=== PATIENT | male | born 1930 | race Caucasian/White ===

== ENCOUNTER 2020-09-02 08:11 | Inpatient (IN) ==
[2020-09-02] MEDS ORDERED: HYDROcodone/ACETAMINOPHEN 1 EACH TABLET PO ONE (08:37)
[2020-09-02] MEDS ORDERED: NORMAL SALINE 1,000 ML IV PRN (09:17)
[2020-09-02] MEDS ORDERED: ADENOSINE 3 MG/ML DISP.SYRIN IV ONE (09:26)
--- NOTE | 2020-09-02 09:26 | ERNOTE ---
Trauma/Assault HPI - Narrative Date of Service: 09/02/20 - General Stated Complaint: Left rib pain Time Seen by Provider: 09/02/20 08:12 Source: patient Exam Limitations: no limitations - Immun/Allergies/Home Medications Immunizations: IMMUNIZATION HX Immunizations Up to Date Yes History of Influenza Vaccine Yes Hx Pneumococcal Vaccination Yes Allergies/Adverse Reactions: Allergies No Known Allergies Allergy (Verified 04/20/20 09:55) Home Medications: HOME MEDICATIONS albuterol sulfate 90 mcg/actuation aerosol inhaler 1 puff IH Q6H 02/18/20 [Last Taken Unknown] amlodipine 10 mg tablet 10 mg PO DAILY tab 02/18/20 [Last Taken Unknown] cholecalciferol (vitamin D3) 10 mcg (400 unit) capsule 10 mcg PO DAILY 02/18/20 [Last Taken Unknown] doxazosin 8 mg tablet 8 mg PO DAILY tab 02/18/20 [Last Taken Unknown] magnesium chloride 64 mg PO DAILY 02/18/20 [Last Taken Unknown] furosemide 20 mg tablet 40 mg PO DAILY tab 04/20/20 [Last Taken Unknown] - History of Present Illness Narrative: This patient is an 89-year-old gentleman who is here with left rib pain. He said that around 8:30 PM you last night, he was trying to get into a car. He said that he lost his balance and went down injuring his left ribs. He did hit the left side of his head. He has no headache. He had no loss of consciousness. He is not interested in a head CT. He has pain when he breathes. He says that he always has a cough and is short of breath. He does not think it is any worse than usual but it hurts more to breathe. He took Tylenol last night. He does not know if he is on a blood thinner. He denies abdominal pain. No nausea or vomiting. He has chronic shoulder pain and does not think it is any worse than usual. He has some abrasions of his left knuckles and left knee. They are not of concern. He does not know when his last tetanus shot was and is interested in another. Review of Systems - Review of Systems All Other Systems: All systems neg except as marked Medical History (Last Reviewed 09/02/20 @ 09:07 by Kiran Mathur MD) Injury of left shoulder (Acute) Status post fall concern for significant rotator cuff impairment Right shoulder pain (Chronic) Fall July 2019 Skin cancer Surgical History: Surgical History (Last Reviewed 09/02/20 @ 09:07 by Kiran Mathur MD) History of prostate surgery Family History: Family History (Last Reviewed 09/02/20 @ 08:18 by Magda Crooks RN) Mother No problems noted. Father Cancer skin Social History: (Last Reviewed 09/02/20 @ 09:07 by Kiran Mathur MD) Social History: Marital status: / household members: none current occupational status: retired current occupation: Retired Highest level of school completed/degree received: 8th grade Service: No Tobacco: Smoking Status: Former smoker Alcohol: alcohol intake: former Substance Use: substance use type: does not use Dietary Habits: caffeine: Yes Type: coffee Physical Exam - Physical Exam General Appearance: Present: wd/wn, alert, no apparent distress Head Exam: Present: no tenderness w palpation, ecchymosis - Left lateral scalp. Absent: lacerations Eye Exam: Normal inspection: bilateral Ears, Nose, Throat: Present: normal ENT inspection, abnormal TM (R) - Cerumen occlusion. Absent: abnormal TM (L) Neck: Present: normal inspection, nontender Respiratory: Present: no respiratory distress, no accessory muscle use, chest tenderness - Left posterior below the scapula. Left lateral lower. Left anterior diffusely., rhonchi Cardiovascular/Chest: Present: regular rate, rhythm, systolic murmur - In the aortic valve area. Gastrointestinal/Abdominal: Present: normal bowel sounds, nontender, nondistended, soft, no organomegaly Back Exam: Present: no vertebral tenderness, other - Tenderness below the left scapula. Extremity Exam: Present: normal range of motion, other - He has some superficial abrasions over some of the knuckles on the back of the left hand. He has a superficial abrasion of the anterior left knee. Neurological Exam: Present: alert, oriented, normal mood/affect, no motor/sensory deficits Skin Exam: Present: normal color, warm/dry - C-Spine cleared by: Neg history & exam Progress - Date and Time Seen: Date and Time: 09/02/20 09:24 The patient has had his x-rays. He went into a tachycardia at about 158. He has no known history of heart disease or arrhythmia. Repeat EKG shows a tachycardia at 155. There is a short SC interval. This might be a sinus tachycardia versus atrial flutter. We will plan to try some adenosine. 09/02/20 09:42 He received the adenosine. He is now in a sinus rhythm at rate 76. Labs are pending. 09/02/20 10:30 He has had no further arrhythmia. The labs have returned and showed anemia and renal failure. He normally is seen in [place]. He has seen a chemistry lecturer at [place]. Dialysis was recommended but he refuses. He is supposed to be seen again in November. - Results and Orders Patient's Lab Results:: I have reviewed the patient's lab results. Results and Orders: Laboratory Tests 09/02/20 09/02/20 09:30 09:30 WBC 6.6 RBC 3.19 L Hgb 9.9 L Hct 30.9 L MCV 96.9 MCH 31.0 MCHC 32.0 RDW 13.7 Plt Count 180 MPV 8.3 Immature Gran % (Auto) 0.80 H Immature Gran # (Auto) 0.05 H Neutrophils % 77.2 H Lymphocytes % 8.9 L Monocytes % 12.2 H Eosinophils % 0.6 Basophils % 0.3 Nucleated RBC % 0.0 Neutrophils # 5.1 Lymphocytes # 0.59 L Monocytes # 0.8 Eosinophils # 0.0 Absolute Basophils 0.0 Sodium 141 Plasma Sodium 141 Potassium 4.7 H Chloride 107 H Carbon Dioxide 22.2 L Anion Gap 16.5 H BUN 53 H Creatinine 4.13 H Est GFR (Non-Af Amer) 15 L BUN/Creatinine Ratio 12.8 Random Glucose 123 H Calcium 8.6 Calcium Adj for Albumin 8.3 L Magnesium 1.8 Total Bilirubin 0.4 AST 19 ALT 15 L Alkaline Phosphatase 75 Troponin I 0.047 B-Natriuretic Peptide 1741 H Total Protein 7.5 Albumin 4.0 TSH 1.255 - Vital Signs Vital Signs: Vital Signs 09/02/20 08:11 09/02/20 08:17 Temperature 36.5 C 36.5 C Pulse Rate 97 97 Respiratory Rate 19 19 Blood Pressure 152/82 H 152/82 H O2 Sat by Pulse Oximetry 95 95 - EKG EKG #1 EKG read: Interp. by me EKG Comments: 08: 17 Sinus rhythm with sinus arrhythmia Rate 97 Right bundle branch block No acute appearing ST or T wave changes. No old EKGs in our system for comparison. EKG #2 EKG read: Interp. by me EKG Comments: Tachycardia short SC interval possible atrial flutter Rate 155 Right bundle branch block No acute appearing ST or T wave changes. Compared to an EKG done earlier today, the rate is faster. EKG #3 EKG read: Interp. by me EKG Comments: Sinus rhythm with sinus arrhythmia Rate 73 Right bundle branch block No acute appearing ST or T wave changes Compared to the prior EKG, the rate has slowed. - X-Ray X-Ray #1 X-Ray: chest Interpretation: Reviewed by me X-ray Comments: Chest PA & Lateral *~ Exam Date: 09/02/2020 08:52 Ordering Physician: Kiran Mathur MD History: Fall last night. Left rib pain. Technique: PA and lateral views of the chest are evaluated without comparison. Findings: Diffuse hyperinflation of the lungs bilaterally with flattening of the hemidiaphragm. Within the right middle lobe is ill-defined probably linear bandlike density. However, underlying nodular density could also be partially obscured from the linear density. There is some pleural scarring and linear parenchymal scarring peripheral to this main opacity. Unclear whether this represents chronic scarring or whether there is an underlying pulmonary nodule. Recommend further evaluation with chest CT given the lack of any prior imaging for comparison. No left-sided consolidation. No pleural effusion or pneumothorax. Silhouette and pulmonary vasculature are normal. There is a minimally displaced fracture the posterior aspect of the left seventh rib is better visualized on the dedicated rib series. The remaining osseous structures demonstrate decreased bony mineralization and degenerative changes of the spine and shoulders. IMPRESSION: 1. MINIMALLY DISPLACED LEFT POSTERIOR SEVENTH RIB FRACTURE. 2. NONSPECIFIC LINEAR BANDLIKE OPACITY AND LINEAR SCARRING IN THE RIGHT LUNG BASE WHICH MAY OR MAY NOT BE OBSCURING A NODULAR OPACITY. RECOMMEND FURTHER EVALUATION WITH CHEST CT WITH CONTRAST GIVEN THE LACK OF ANY PRIOR EXAMS TO DOCUMENT STABILITY. Electronically signed by Amador Elmore D.O.. X-Ray #2 X-Ray: ribs Interpretation: Reviewed by me X-ray Comments: Ribs Unilateral LT *~ Exam Date: 09/02/2020 08:55 Ordering Physician: Kiran Mathur MD Indication: Left lateral rib pain after fall last night. Technique: 4 coned-down views of the left ribs. Comparison: No relevant priors. Findings: There is a minimally displaced fracture the posterior aspect of the left seventh rib. The distal rib is displaced approximately 2 mm superiorly when related to the proximal rib. No other visible displaced rib fractures identified. No pleural effusion, pleural thickening or pneumothorax identified. IMPRESSION: MINIMALLY DISPLACED POSTERIOR SEVENTH RIB FRACTURE ON THE LEFT. NO COMPLICATION. Electronically signed by Amador Elmore D.O.. - Progress/Reassessment Chief Complaint: Fall Plan - Plan Plan: With the arrhythmia and his injury, it seems prudent to observe the patient in the hospital. I spoke with Dr. Zhang. She is okay observing in his lungs he understands there is no cardiology. The patient understands and is okay with this. Departure Clinical Impression: Tachyarrhythmia, Rib fracture, Renal failure, Anemia, Hypertension, Pulmonary scarring - Departure Disposition: Still a patient Condition: Stable Referrals: Noelle Moreno ARNP [Primary Care Provider] - Critical Care Time - Critical Care Critical Time Spent:: No
[2020-09-02 09:37] LABS: Hematocrit 30.9 % (42.0-52.0); Hemoglobin 9.9 gm/dL (13.5-18.0); Mean Cell Volume 96.9 fl (78-100); Mean Platelet Volume 8.3 fl (8-11.3); Neutrophil # 5.1 K/mm3 (1.3-6.0); Neutrophil % 77.2 % (42-75.0); Platelet Count 180 K/mm3 (150-450); Red Blood Count 3.19 M/mm3 (4.7-6.0); Red Cell Distribution Width 13.7 % (11.5-14.0); White Blood Count 6.6 K/mm3 (4.0-10.5)
[2020-09-02 09:54] LABS: Troponin I 0.047 ng/mL (0.00-0.10)
[2020-09-02 09:56] LABS: Anion Gap 16.5 mmol/L (6.8-13.8); BUN/Creatinine Ratio 12.8 (9.0-21.6); Bilirubin, Total 0.4 mg/dL (0.0-1.1); Ca. Corrected For Albumin 8.3 mg/dL (8.4-10.2); Calcium * 8.6 mg/dL (7.9-10.9); Carbon Dioxide 22.2 mmol/L (24-32.6); Magnesium 1.8 mg/dL (1.2-2.8); Potassium 4.7 mmol/L (3.4-4.6); TSH * 1.255 uIU/mL (0.358-3.74); Total Protein 7.5 gm/dL (6.2-8.2)
--- NOTE | 2020-09-02 12:40 | HP ---
Chief Complaint - Chief Complaint Date of Service: 09/02/20 Time of Service: 12:24 Chief Complaint: rib pain History of Present Illness: Patient with PMHx of renal failure, COPD, HTN presented to the ED the morning after falling. He is not exactly sure what happened, but was getting out of his car and fell, hitting his head. He has substantial left side pain. In the ED, workup found a minimally displaced posterior left 7th rib fracture. While in the ED, his HR escalated to the 150's, sinus vs aflutter. He was given a dose of adenosine and rate decreased to the 70's. He is in renal failure, but this is longstanding, and he has declined renal replacement therapy. Baseline creatinine appears to be around 3.8, and was 4.13 today with GFR of 15. COVID negative. He is anemic with Hgb of 9.9, baseline around 10.0. He lives alone. He is admitted to observation for monitoring of his heart rate/rhythm and pain control. History obtained from him with his grand daughter's partner at bedside. Medical History (Last Reviewed 09/02/20 @ 09:07 by Kiran Mathur MD) Injury of left shoulder (Acute) Status post fall concern for significant rotator cuff impairment Right shoulder pain (Chronic) Fall July 2019 Skin cancer Surgical History: Surgical History (Last Reviewed 09/02/20 @ 09:07 by Kiran Mathur MD) History of prostate surgery Family History: Family History (Last Reviewed 09/02/20 @ 08:18 by Magda Crooks RN) Mother No problems noted. Father Cancer skin Social History: (Last Reviewed 09/02/20 @ 09:07 by Kiran Mathur MD) Social History: Marital status: / household members: none current occupational status: retired current occupation: Retired Highest level of school completed/degree received: 8th grade Service: No Tobacco: Smoking Status: Former smoker Alcohol: alcohol intake: former Substance Use: substance use type: does not use Dietary Habits: caffeine: Yes Type: coffee Review Of Systems (GEN) - Review of Systems Generalized/Overall Review: Present: Fatigue - baseline. Absent: Fever Respiratory: Present: Cough, Shortness of Breath - baseline Cardiac: Present: Chest Pain - left lateral. Absent: Edema Abdominal: Present: No Symptoms Reported Genitourinary: Present: No Symptoms Reported Musculoskeletal: Present: Joint Pain - shoulders Skin: Present: No Symptoms Reported Immunizations: IMMUNIZATION HX Immunizations Up to Date Yes History of Influenza Vaccine Yes Hx Pneumococcal Vaccination Yes Allergies/Adverse Reactions: Allergies Allergy/AdvReac Type Severity Reaction Status Date / Time No Known Allergies Allergy Verified 04/20/20 09:55 Home Medications: HOME MEDICATIONS albuterol sulfate 90 mcg/actuation aerosol inhaler 1 puff IH Q6H 02/18/20 [Last Taken Unknown] amlodipine 10 mg tablet 10 mg PO DAILY tab 02/18/20 [Last Taken Unknown] cholecalciferol (vitamin D3) 10 mcg (400 unit) capsule 10 mcg PO DAILY 02/18/20 [Last Taken Unknown] doxazosin 8 mg tablet 8 mg PO DAILY tab 02/18/20 [Last Taken Unknown] magnesium chloride 64 mg PO DAILY 02/18/20 [Last Taken Unknown] furosemide 20 mg tablet 40 mg PO DAILY tab 04/20/20 [Last Taken Unknown] Albuterol Sulfate/Ipratropium [Duoneb 2.5-0.5MG/3ML Soln] 3 ml IH QID 09/02/20 [Last Taken Unknown] Fluticasone Propion/Salmeterol [Advair 250-50 Diskus] 1 puff IH BID 09/02/20 [Last Taken Unknown] Sodium Bicarbonate 650 mg PO TID 09/02/20 [Last Taken Unknown] Symbicort 160-4.5 Mcg Inhaler 2 puff BID 09/02/20 [Last Taken Unknown] Umeclidinium Brm/Vilanterol Tr [Anoro Ellipta 62.5-25 Mcg INH] 1 ea IH DAILY 09/02/20 [Last Taken Unknown] Exam - Exam Vital Signs: Vital Signs - Last Taken Temp 36.5 C 09/02/20 11:57 Pulse 93 09/02/20 11:57 Resp 21 H 09/02/20 11:57 BP 137/66 09/02/20 11:57 Pulse Ox 94 09/02/20 11:57 Constitutional: Present: Alert, Cooperative, Other - pain with coughing, Elderly Respiratory: Present: no respiratory distress, rhonchi - sonorous bilateral lung sounds Cardiovascular/Chest: Present: regular rate, rhythm, systolic murmur Abdomen: Present: Normal bowel sounds, soft, nontender Extremity: Absent: lower extremity edema Eye contact: Present: cooperative, good eye contact Diagnostic Studies: Abnormal Lab Results 09/02/20 09/02/20 Range/Units 09:30 09:30 RBC 3.19 L (4.7-6.0) M/mm3 Hgb 9.9 L (13.5-18.0) gm/dL Hct 30.9 L (42.0-52.0) % Immature Gran % (Auto) 0.80 H (0.001-0.429) % Immature Gran # (Auto) 0.05 H (0.000-0.0310) K/mm3 Neutrophils % 77.2 H (42-75.0) % Lymphocytes % 8.9 L (20-51) % Monocytes % 12.2 H (0.0-9) % Lymphocytes # 0.59 L (1.5-3.5) k/mm3 Potassium 4.7 H (3.4-4.6) mmol/L Chloride 107 H (97-106) mmol/L Carbon Dioxide 22.2 L (24-32.6) mmol/L Anion Gap 16.5 H (6.8-13.8) mmol/L BUN 53 H (6-23) mg/dL Creatinine 4.13 H (0.4-1.4) mg/dL Est GFR (Non-Af Amer) 15 L (60-130) mL/min Random Glucose 123 H (70-110) mg/dL Calcium Adj for Albumin 8.3 L (8.4-10.2) mg/dL ALT 15 L (19-67) U/L B-Natriuretic Peptide 1741 H (5-650) pg/mL Laboratory Results WBC 6.6 K/mm3 (4.0-10.5) 09/02/20 09:30 RBC 3.19 M/mm3 (4.7-6.0) L 09/02/20 09:30 Hgb 9.9 gm/dL (13.5-18.0) L 09/02/20 09:30 Hct 30.9 % (42.0-52.0) L 09/02/20 09:30 MCV 96.9 fl (78-100) 09/02/20 09:30 MCH 31.0 pg (27-31) 09/02/20 09:30 MCHC 32.0 g/dl (32-36) 09/02/20 09:30 RDW 13.7 % (11.5-14.0) 09/02/20 09:30 Plt Count 180 K/mm3 (150-450) 09/02/20 09:30 MPV 8.3 fl (8-11.3) 09/02/20 09:30 Immature Gran % (Auto) 0.80 % (0.001-0.429) H 09/02/20 09:30 Immature Gran # (Auto) 0.05 K/mm3 (0.000-0.0310) H 09/02/20 09:30 Neutrophils % 77.2 % (42-75.0) H 09/02/20 09:30 Lymphocytes % 8.9 % (20-51) L 09/02/20 09:30 Monocytes % 12.2 % (0.0-9) H 09/02/20 09:30 Eosinophils % 0.6 % (0.0-3.0) 09/02/20 09:30 Basophils % 0.3 % (0.0-1.0) 09/02/20 09:30 Nucleated RBC % 0.0 k/mm3 (0-1) 09/02/20 09:30 Neutrophils # 5.1 K/mm3 (1.3-6.0) 09/02/20 09:30 Lymphocytes # 0.59 k/mm3 (1.5-3.5) L 09/02/20 09:30 Monocytes # 0.8 k/mm3 (0.0-1.0) 09/02/20 09:30 Eosinophils # 0.0 k/mm3 (0.0-0.7) 09/02/20 09:30 Absolute Basophils 0.0 k/mm3 (0.0-0.1) 09/02/20 09:30 Sodium 141 mmol/L (132-142) 09/02/20 09:30 Plasma Sodium 141 mmol/L (130-142) 09/02/20 09:30 Potassium 4.7 mmol/L (3.4-4.6) H 09/02/20 09:30 Chloride 107 mmol/L (97-106) H 09/02/20 09:30 Carbon Dioxide 22.2 mmol/L (24-32.6) L 09/02/20 09:30 Anion Gap 16.5 mmol/L (6.8-13.8) H 09/02/20 09:30 BUN 53 mg/dL (6-23) H 09/02/20 09:30 Creatinine 4.13 mg/dL (0.4-1.4) H 09/02/20 09:30 Est GFR (Non-Af Amer) 15 mL/min (60-130) L 09/02/20 09:30 BUN/Creatinine Ratio 12.8 (9.0-21.6) 09/02/20 09:30 Random Glucose 123 mg/dL (70-110) H 09/02/20 09:30 Calcium 8.6 mg/dL (7.9-10.9) 09/02/20 09:30 Calcium Adj for Albumin 8.3 mg/dL (8.4-10.2) L 09/02/20 09:30 Magnesium 1.8 mg/dL (1.2-2.8) 09/02/20 09:30 Total Bilirubin 0.4 mg/dL (0.0-1.1) 09/02/20 09:30 AST 19 U/L (0-48) 09/02/20 09:30 ALT 15 U/L (19-67) L 09/02/20 09:30 Alkaline Phosphatase 75 U/L (50-170) 09/02/20 09:30 Troponin I 0.047 ng/mL (0.00-0.10) 09/02/20 09:30 B-Natriuretic Peptide 1741 pg/mL (5-650) H 09/02/20 09:30 Total Protein 7.5 gm/dL (6.2-8.2) 09/02/20 09:30 Albumin 4.0 gm/dl (3.4-5.0) 09/02/20 09:30 TSH 1.255 uIU/mL (0.358-3.74) 09/02/20 09:30 SARS-CoV-2 (PCR) Not detected (NotDetected) 09/02/20 10:25 Assessment/Plan - Narrative Narrative: Will monitor heart rate on telemetry, and check his response to tramadol. If no recurrence and pain is controlled, could DC home tomorrow. He agrees to home health. Will order PT consult. He has a cane and walker at home. He is homebound due to COPD. The need for custodial is medication management. The need for home health care skilled services is directly related to the time spent [id number] with him. - Assessment/Plan (1) Tachyarrhythmia Assessment: Resolved in the ED. Continue telemetry. If it recurs, could start metoprolol, but I have concerns for further reducing his energy levels and causing more falls. He has had about 3 falls in the last year. With his severely poor renal function and advanced COPD, he likely will continue to fall. Problem: Resolved (2) Rib fracture Assessment: Will start tramadol and monitor for pain control, and make sure he can tolerate this, with his poor renal function. Problem: Acute (3) Abnormal CXR Assessment: CXR read states "NONSPECIFIC LINEAR BANDLIKE OPACITY AND LINEAR SCARRING IN THE RIGHT LUNG BASE WHICH MAY OR MAY NOT BE OBSCURING A NODULAR OPACITY." Will defer this to his PCP. With his serious comorbidities, further workup may not be advantageous for him. Problem: Acute (4) Renal failure Assessment: GFR 15 today, but unable to find previous GFR. Renal replacement therapy has been suggested for him, but he's declined. Problem: Chronic Qualifiers: Chronic kidney disease stage: stage 4 (severe) (5) Anemia Assessment: At baseline. Likely due to renal failure. Problem: Chronic (6) Cardiac murmur Assessment: Patient and his grand daughter's partner are unaware of this being present in the past. If PCP would like, could obtain echo. Problem: Acute (7) Hypertension Problem: Acute (8) Right shoulder pain Problem: Chronic Qualifiers: Chronicity: chronic Qualified Code(s): M25.511 - Pain in right shoulder; G89.29 - Other chronic pain (9) COPD (chronic obstructive pulmonary disease) Assessment: Continue several home meds. He is oxygenating in the low 90's on room air. Problem: Chronic
[2020-09-02] MEDS ORDERED: ALBUTEROL SULFATE 2.5 MG/3 ML VIAL.NEB IH SCH (13:00)
[2020-09-02] MEDS: ALBUTEROL SULFATE/IPRATROPIUM 3 ML NEBU IH SCH ×3 (13:53→18:13)
[2020-09-02] MEDS: traMADol HCL 50 MG TABLET PO PRN ×2 (14:11→20:30)
[2020-09-02] MEDS: FORMOTEROL FUMARATE 20 MCG/2 ML VIAL IH SCH (18:13)
[2020-09-02] MEDS: HYDROcodone/ACETAMINOPHEN 1 EACH TABLET PO PRN (19:06)
[2020-09-02] MEDS: LIDOCAINE 1 PATCH ADH..PATCH TP SCH (19:06)
[2020-09-02] MEDS: FLUTICASONE PROPION/SALMETEROL 14 PUFF DISK.W.DEV IH SCH (20:26)
[2020-09-02] MEDS ORDERED: FLUTICASONE PROPION/SALMETEROL 14 PUFF DISK.W.DEV IH SCH (21:00)
[2020-09-03] MEDS: HYDROcodone/ACETAMINOPHEN 1 EACH TABLET PO PRN ×2 (00:35→08:21)
[2020-09-03] MEDS: ALBUTEROL SULFATE 2.5 MG/3 ML VIAL.NEB IH PRN ×3 (02:04→23:56)
[2020-09-03] MEDS: FORMOTEROL FUMARATE 20 MCG/2 ML VIAL IH SCH ×3 (05:38→18:23)
[2020-09-03] MEDS: ALBUTEROL SULFATE/IPRATROPIUM 3 ML NEBU IH SCH ×4 (06:02→18:23)
[2020-09-03] MEDS: amLODIPine BESYLATE 10 MG TABLET PO SCH (08:22)
[2020-09-03] MEDS: TIOTROPIUM BROMIDE 5 CAP INHALER IH SCH (08:22)
[2020-09-03] MEDS: DOXAZOSIN MESYLATE 2 MG TABLET PO SCH (08:22)
[2020-09-03] MEDS: FUROSEMIDE 40 MG TABLET PO SCH (08:22)
[2020-09-03] MEDS: CHOLECALCIFEROL 400 UNIT TABLET PO SCH (08:22)
[2020-09-03] MEDS: FLUTICASONE PROPION/SALMETEROL 14 PUFF DISK.W.DEV IH SCH ×2 (08:22→20:16)
[2020-09-03] MEDS: LIDOCAINE 1 PATCH ADH..PATCH TP SCH (10:52)
[2020-09-03] MEDS ORDERED: METOPROLOL TARTRATE 1 MG/ML AMPUL IV ONE (11:19)
--- NOTE | 2020-09-03 12:24 | PN ---
Subjective - Date and Time Seen Date: 09/03/20 Time: 09:00 Subjective Narrative: Patient's rib pain is still substantial. Lidocaine patch and norco aren't helping. His HR again increased to the 160's this afternoon. Is eating ok. Hasn't had a BM in a few days, but is not uncomfortable. Objective - Review of Systems Generalized/Overall Review: Denies: Fever Respiratory: Reports: Cough, Shortness of Breath Cardiac: Reports: Chest Pain - left rib Abdominal: Denies: Vomiting, Abdominal Pain Genitourinary Symptoms: Reports: No Symptoms Reported Musculoskeletal Complaints: Reports: Joint Pain - shoulders - Vitals Vitals: Last Vital Signs Temp 37.0 C 09/03/20 10:00 Pulse 160 H 09/03/20 11:34 Resp 20 09/03/20 10:00 BP 180/69 H 09/03/20 11:34 Pulse Ox 93 09/03/20 10:00 - Exam Constitutional: Present: Alert, Elderly Respiratory: Present: no respiratory distress, wheezing Cardiovascular/Chest: Present: tachycardia Abdomen: Present: soft, nontender Extremity: Absent: lower extremity edema Eye contact: Present: cooperative, good eye contact Assessment/Plan Plan Narrative: Discussed severity of his COPD and renal failure, and possibility that physicians may not be able to restore his previous level of function. With his rib fracture and pain, he is at increased risk of pneumonia. Asked about ventilator if needed, and he declines. Asked about CPR, and he agrees to that, but did not seem to comprehend that it likely would be futile. Asked if he was interested in learning more about hospice, and he declines. - Problems/Diagnosis (1) Tachyarrhythmia Problem: Acute Narrative: Tachycardia is intermittent. It improved after adenosine yesterday in the ED, and again without intervention yesterday afternoon. His HR is staying in the 160's and he is more SOB, so 5 mg IV lopressor given a few minutes ago. I have concerns that this may be an indication of a poor prognosis. (2) Rib fracture Problem: Acute Narrative: Pain has been uncontrolled with tramadol, lidocaine patch, biofreeze, and norco. Will start oxycodone. His pain is enough that he likely is not taking deep breaths, and is at risk to develop pneumonia. He is not safe to go home at this time. He was evaluated by PT, who recommended SNF or full home health services. He has had a couple of falls in the last year, and he continues to be a fall risk. (3) Abnormal CXR Problem: Acute Narrative: CXR read states "NONSPECIFIC LINEAR BANDLIKE OPACITY AND LINEAR SCARRING IN THE RIGHT LUNG BASE WHICH MAY OR MAY NOT BE OBSCURING A NODULAR OPACITY." Will defer this to his PCP. With his serious comorbidities, further workup may not be advantageous for him. (4) Renal failure Problem: Chronic Qualifiers: Chronic kidney disease stage: stage 4 (severe) Narrative: GFR 15 on admission, and previous GFR looks to also 16-18, so he is at his baseline. Renal replacement therapy has been suggested for him, but he's declined. (5) Anemia Problem: Chronic Narrative: At baseline. Likely due to renal failure. Nephrology note states he may start erythropoiesis-stimulating agents if his hgb stays less than 10.0. (6) COPD (chronic obstructive pulmonary disease) Problem: Chronic (7) Cardiac murmur Problem: Chronic (8) Hypertension Problem: Chronic (9) Right shoulder pain Problem: Chronic Qualifiers: Chronicity: chronic Qualified Code(s): M25.511 - Pain in right shoulder; G89.29 - Other chronic pain
[2020-09-03] MEDS: oxyCODONE HCL 5 MG TABLET PO PRN ×3 (12:41→21:44)
[2020-09-03] MEDS ORDERED: ONDANSETRON HCL/PF 2 MG/ML VIAL IV PRN (21:14)
[2020-09-04] MEDS: oxyCODONE HCL 5 MG TABLET PO PRN ×2 (02:54→09:06)
[2020-09-04] MEDS: ALBUTEROL SULFATE/IPRATROPIUM 3 ML NEBU IH SCH ×4 (06:10→19:13)
[2020-09-04] MEDS: FORMOTEROL FUMARATE 20 MCG/2 ML VIAL IH SCH ×2 (06:13→19:13)
[2020-09-04 07:04] LABS: Hematocrit 29.4 % (42.0-52.0); Hemoglobin 9.1 gm/dL (13.5-18.0); Mean Cell Volume 100.3 fl (78-100); Mean Corpuscular Hemoglobin 31.1 pg (27-31); Mean Platelet Volume 8.6 fl (8-11.3); Neutrophil # 5.9 K/mm3 (1.3-6.0); Neutrophil % 75.8 % (42-75.0); Platelet Count 157 K/mm3 (150-450); Red Blood Count 2.93 M/mm3 (4.7-6.0); Red Cell Distribution Width 13.8 % (11.5-14.0); White Blood Count 7.8 K/mm3 (4.0-10.5)
[2020-09-04 07:21] LABS: Albumin * 3.5 gm/dl (3.4-5.0); Anion Gap 15.9 mmol/L (6.8-13.8); BUN/Creatinine Ratio 13.2 (9.0-21.6); Bilirubin, Total 0.4 mg/dL (0.0-1.1); Ca. Corrected For Albumin 8.8 mg/dL (8.4-10.2); Calcium * 8.7 mg/dL (7.9-10.9); Carbon Dioxide 23.4 mmol/L (24-32.6); Potassium 5.3 mmol/L (3.4-4.6)
[2020-09-04] MEDS: amLODIPine BESYLATE 10 MG TABLET PO SCH (09:06)
[2020-09-04] MEDS: FLUTICASONE PROPION/SALMETEROL 14 PUFF DISK.W.DEV IH SCH ×2 (09:06→20:57)
[2020-09-04] MEDS: CHOLECALCIFEROL 400 UNIT TABLET PO SCH (09:06)
[2020-09-04] MEDS: DOXAZOSIN MESYLATE 2 MG TABLET PO SCH (09:06)
[2020-09-04] MEDS: LIDOCAINE 1 PATCH ADH..PATCH TP SCH (09:06)
[2020-09-04] MEDS: TIOTROPIUM BROMIDE 5 CAP INHALER IH SCH (09:06)
[2020-09-04] MEDS: FUROSEMIDE 40 MG TABLET PO SCH (09:07)
[2020-09-04 09:31] LABS: Magnesium 1.8 mg/dL (1.2-2.8); Phosphorus 4.5 mg/dL (2.2-4.2)
--- NOTE | 2020-09-04 10:19 | PN ---
Subjective - Date and Time Seen Date: 09/04/20 Time: 08:45 Subjective Narrative: He is more sleepy on exam, falling asleep while talking. His nurse confirms that he is more sleepy with the oxycodone, but doesn't feel like it's helping his pain. He also started requiring oxygen overnight, for pulse ox in the 80's. He was able to tell me that he's "not moving around too good," and didn't sleep well overnight. Heart rate improved after 5 mg IV lopressor yesterday afternoon. Objective - Review of Systems Generalized/Overall Review: Reports: Weakness Respiratory: Reports: Cough, Shortness of Breath Cardiac: Reports: Chest Pain - left ribs Abdominal: Reports: No Symptoms Reported Genitourinary Symptoms: Reports: No Symptoms Reported Musculoskeletal Complaints: Reports: Joint Pain - shoulders - Vitals Vitals: Last Vital Signs Temp 37.3 C 09/04/20 06:24 Pulse 92 09/04/20 09:07 Resp 20 09/04/20 06:24 BP 145/55 09/04/20 09:07 Pulse Ox 99 09/04/20 06:24 - Abnormal Lab Findings Abnormal Lab Findings: Abnormal Lab Results 09/04/20 09/04/20 09/04/20 Range/Units 06:51 06:55 06:55 RBC 2.93 L (4.7-6.0) M/mm3 Hgb 9.1 L (13.5-18.0) gm/dL Hct 29.4 L (42.0-52.0) % MCV 100.3 H (78-100) fl MCH 31.1 H (27-31) pg MCHC 31.0 L (32-36) g/dl Immature Gran % (Auto) 0.60 H (0.001-0.429) % Immature Gran # (Auto) 0.05 H (0.000-0.0310) K/mm3 Neutrophils % 75.8 H (42-75.0) % Lymphocytes % 8.7 L (20-51) % Monocytes % 14.5 H (0.0-9) % Lymphocytes # 0.68 L (1.5-3.5) k/mm3 Monocytes # 1.1 H (0.0-1.0) k/mm3 Potassium 5.3 H (3.4-4.6) mmol/L Carbon Dioxide 23.4 L (24-32.6) mmol/L Anion Gap 15.9 H (6.8-13.8) mmol/L BUN 55 H (6-23) mg/dL Creatinine 4.17 H (0.4-1.4) mg/dL Est GFR (Non-Af Amer) 14 L (60-130) mL/min Random Glucose 111 H (70-110) mg/dL Phosphorus 4.5 H (2.2-4.2) mg/dL ALT 14 L (19-67) U/L - Exam Constitutional: Present: Other - wakens for exam, but falls asleep easily, Elderly Neck: Present: other - audible upper airway congestion Respiratory: Present: rhonchi, other - using 1L via NC Cardiovascular/Chest: Present: regular rate, rhythm Abdomen: Present: distended Extremity: Absent: lower extremity edema Assessment/Plan Plan Narrative: Discussed hospice options yesterday, but he declined hospice due to his experience with his . With his severe COPD and renal failure, he is weak at baseline. He now has a painful rib fracture and is at risk for pneumonia. He is having episodes of SVT, but I am reluctant to start a preventive beta andree, because this may make him feel more tired and lead to additional falls. He has a cardiac murmur on exam, and reports not being aware of this. His CXR also showed a bandlike opacity, and chest CT recommended for further evaluation. Discussed his severe situation with his grand daughter, who is interested in seeing what hospice may offer, and she is on her way in to sit with him today. Will again attempt this conversation with him when he is more awake. - Problems/Diagnosis (1) Tachyarrhythmia Problem: Acute Narrative: He continues to have episodes of SVT. In the ED, he was given adenosine, and it improved. After he arrived to the floor on 09/02, it happened again, but resolved without medication. Yesterday, happened and persisted longer, and responded to 5 mg lopressor. He again went into SVT a few minutes ago, and will again administer IV lopressore. May be due to the strain of severe COPD and renal failure. Discussed with his grand daughter that his prognosis is poor. (2) Rib fracture Problem: Acute Narrative: Pain management has been difficult. Tramadol, lidocaine patch, and norco weren't helpful. Oxycodone was started, but he does not feel like this was helpful either, and is more sleepy and now requiring oxygen. He may need the oxygen due to the pain meds, or he may be developing pneumonia. Has not been febrile. Will try tylenol, but next step may be dilaudid. (3) Abnormal CXR Problem: Acute (4) Renal failure Problem: Chronic Qualifiers: Chronic kidney disease stage: stage 4 (severe) Narrative: Dialysis was recommended in the past, but he declined. Renal function is staying stable, but poor this admission. Today's GFR was 14, and was 15 on admission. Creatinine was 4.17 today, and was 4.13 on admission. (5) Anemia Problem: Chronic Qualifiers: Anemia type: due to chronic kidney disease Narrative: Hgb decreased from 9.9 to 9.1. His corporation officer may start JEOVANY if his hemoglobin is consistently less than 10.0. 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 (7) Cardiac murmur Problem: Chronic (8) Hypertension Problem: Chronic (9) Right shoulder pain Problem: Chronic Qualifiers: Chronicity: chronic Qualified Code(s): M25.511 - Pain in right shoulder; G89.29 - Other chronic pain (10) Hyperkalemia Problem: Chronic Narrative: Likely due to renal failure.
[2020-09-04] MEDS ORDERED: METOPROLOL TARTRATE 1 MG/ML AMPUL IV ONE ×2 (10:27→19:19)
[2020-09-04] MEDS: ACETAMINOPHEN 500 MG TABLET PO PRN ×2 (14:51→20:56)
[2020-09-04] MEDS ORDERED: METOPROLOL TARTRATE 25 MG TABLET PO SCH (21:00)
[2020-09-05] MEDS: ALBUTEROL SULFATE/IPRATROPIUM 3 ML NEBU IH SCH ×5 (05:36→18:06)
[2020-09-05] MEDS: ACETAMINOPHEN 500 MG TABLET PO PRN ×3 (05:48→21:04)
[2020-09-05] MEDS: FORMOTEROL FUMARATE 20 MCG/2 ML VIAL IH SCH ×3 (06:20→18:06)
--- NOTE | 2020-09-05 10:03 | PN ---
Subjective - Date and Time Seen Date: 09/05/20 Time: 09:57 Subjective Narrative: Tylenol is not helping with his pain. He is coughing up sputum, but it's the same color and consistency as what he normally coughs up. Again had runs of SVT overnight. Is more lucid this morning. Objective - Review of Systems Generalized/Overall Review: Reports: Weakness Respiratory: Reports: Cough, Shortness of Breath Cardiac: Denies: Edema Abdominal: Reports: No Symptoms Reported Genitourinary Symptoms: Reports: No Symptoms Reported Musculoskeletal Complaints: Reports: Joint Pain - Vitals Vitals: Last Vital Signs Temp 36.9 C 09/05/20 06:30 Pulse 82 09/05/20 06:30 Resp 22 H 09/05/20 06:30 BP 136/54 09/05/20 06:30 Pulse Ox 94 09/05/20 06:30 - Exam Constitutional: Present: Alert, Other - flinches in pain with cough, Elderly Respiratory: Present: rhonchi, other - intermittent coughing Cardiovascular/Chest: Present: regular rate, rhythm, systolic murmur Abdomen: Present: Normal bowel sounds, soft Extremity: Absent: lower extremity edema Neurologic: Present: normal mood/affect Eye contact: Present: cooperative, good eye contact Assessment/Plan Plan Narrative: He continues to have runs of SVT, so will start 25 mg metoprolol tartrate bid, and monitor closely for hypotension or further weakness. His pain is still uncontrolled. He feels like he could scream every time he coughs. I've tried tramadol, norco, oxycodone, lidocaine patches, and none have helped, and he was more somnolent with oxycodone. Will start 1 mg dilaudid q6h prn. Asked about murmur, and he declined an echo. He'd like to get his pain under control first. Again discussed code status. "If you feel like I would be on a ventilator for the rest of my life, I don't want it. I just don't know." Updated his grand daughter, Cheri. He'd like to eventually go back home, but agrees to SNF. He will be ok for DC when his heart rate remains controlled, and when his pain is tolerable. - Problems/Diagnosis (1) Tachyarrhythmia Problem: Acute (2) Rib fracture Problem: Acute (3) Abnormal CXR Problem: Acute Narrative: Admission CXR stated "NONSPECIFIC LINEAR BANDLIKE OPACITY AND LINEAR SCARRING IN THE RIGHT LUNG BASE WHICH MAY OR MAY NOT BE OBSCURING A NODULAR OPACITY. RECOMMEND FURTHER EVALUATION WITH CHEST CT WITH CONTRAST GIVEN THE LACK OF ANY PRIOR EXAMS TO DOCUMENT STABILITY." If he'd like this investigated, will obtain CT chest. (4) Renal failure Problem: Chronic Qualifiers: Chronic kidney disease stage: stage 4 (severe) Narrative: Dialysis was recommended in the past, but he declined. Renal function is staying stable, but poor this admission. Today's GFR was 14, and was 15 on admission. Creatinine was 4.17 today, and was 4.13 on admission. (5) Anemia Problem: Chronic Qualifiers: Anemia type: due to chronic kidney disease Narrative: His division manager may start JEOVANY if his hemoglobin is consistently less than 10.0, and hgb has been in the 9 range this admission. We do not have nephrology available here. (6) COPD (chronic obstructive pulmonary disease) Problem: Chronic Narrative: Severe. 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 Has frequent sputum production at baseline. (7) Cardiac murmur Problem: Chronic Narrative: declined echo (8) Hyperkalemia Problem: Chronic Narrative: Likely due to his renal failure. If further elevated tomorrow, will administer kayexalate. (9) Hypertension Problem: Chronic (10) Right shoulder pain Problem: Chronic Qualifiers: Chronicity: chronic Qualified Code(s): M25.511 - Pain in right shoulder; G89.29 - Other chronic pain
[2020-09-05] MEDS ORDERED: METOPROLOL SUCCINATE 25 MG TABLET.SA PO ONE (10:11)
[2020-09-05] MEDS: METOPROLOL TARTRATE 25 MG TABLET PO SCH ×2 (10:14→21:04)
[2020-09-05] MEDS: LIDOCAINE 1 PATCH ADH..PATCH TP SCH (10:14)
[2020-09-05] MEDS: HYDROmorphone HCL 2 MG TABLET PO PRN ×2 (10:14→17:38)
[2020-09-05] MEDS: DOXAZOSIN MESYLATE 2 MG TABLET PO SCH (10:14)
[2020-09-05] MEDS: TIOTROPIUM BROMIDE 5 CAP INHALER IH SCH (10:15)
[2020-09-05] MEDS: FUROSEMIDE 40 MG TABLET PO SCH (10:15)
[2020-09-05] MEDS: CHOLECALCIFEROL 400 UNIT TABLET PO SCH (10:15)
[2020-09-05] MEDS: amLODIPine BESYLATE 10 MG TABLET PO SCH (10:15)
[2020-09-05] MEDS: FLUTICASONE PROPION/SALMETEROL 14 PUFF DISK.W.DEV IH SCH ×2 (10:16→21:04)
[2020-09-05 10:28] LABS: Hemoglobin 9.2 gm/dL (13.5-18.0); Mean Cell Volume 100.7 fl (78-100); Mean Corpuscular Hemoglobin 30.9 pg (27-31); Mean Corpuscular Hgb Conc 30.7 g/dl (32-36); Mean Platelet Volume 8.4 fl (8-11.3); Neutrophil # 6.1 K/mm3 (1.3-6.0); Neutrophil % 72.5 % (42-75.0); Platelet Count 158 K/mm3 (150-450); Red Blood Count 2.98 M/mm3 (4.7-6.0); Red Cell Distribution Width 13.7 % (11.5-14.0); White Blood Count 8.3 K/mm3 (4.0-10.5)
[2020-09-05 10:50] LABS: Albumin * 3.5 gm/dl (3.4-5.0); Anion Gap 17.5 mmol/L (6.8-13.8); BUN/Creatinine Ratio 14.9 (9.0-21.6); Bilirubin, Total 0.4 mg/dL (0.0-1.1); Ca. Corrected For Albumin 8.9 mg/dL (8.4-10.2); Calcium * 8.8 mg/dL (7.9-10.9); Carbon Dioxide 22.5 mmol/L (24-32.6); Total Protein 7.1 gm/dL (6.2-8.2)
[2020-09-06] MEDS: ALBUTEROL SULFATE 2.5 MG/3 ML VIAL.NEB IH PRN (00:13)
[2020-09-06] MEDS: ALBUTEROL SULFATE/IPRATROPIUM 3 ML NEBU IH SCH (06:05)
[2020-09-06] MEDS: FORMOTEROL FUMARATE 20 MCG/2 ML VIAL IH SCH (06:21)
[2020-09-06] MEDS: ACETAMINOPHEN 500 MG TABLET PO PRN (07:02)
[2020-09-06] MEDS: TIOTROPIUM BROMIDE 5 CAP INHALER IH SCH (08:42)
[2020-09-06] MEDS: FLUTICASONE PROPION/SALMETEROL 14 PUFF DISK.W.DEV IH SCH (08:42)
[2020-09-06] MEDS: FUROSEMIDE 40 MG TABLET PO SCH (08:44)
[2020-09-06] MEDS: CHOLECALCIFEROL 400 UNIT TABLET PO SCH (08:44)
[2020-09-06] MEDS: DOXAZOSIN MESYLATE 2 MG TABLET PO SCH (08:45)
[2020-09-06] MEDS: amLODIPine BESYLATE 10 MG TABLET PO SCH (08:46)
[2020-09-06] MEDS: LIDOCAINE 1 PATCH ADH..PATCH TP SCH (08:46)
--- NOTE | 2020-09-06 08:50 | DS ---
(1) Rib fracture Problem: Acute (2) Tachyarrhythmia Problem: Resolved (3) Abnormal CXR Problem: Acute (4) Renal failure Problem: Chronic Qualifiers: Chronic kidney disease stage: stage 5, not on chronic dialysis (5) Anemia Problem: Chronic Qualifiers: Anemia type: due to chronic kidney disease (6) COPD (chronic obstructive pulmonary disease) Problem: Chronic (7) Cardiac murmur Problem: Chronic (8) Hyperkalemia Problem: Chronic (9) Hypertension Problem: Chronic (10) Right shoulder pain Problem: Chronic Qualifiers: Chronicity: chronic Qualified Code(s): M25.511 - Pain in right shoulder; G89.29 - Other chronic pain Date of Discharge:: 09/06/20 Hospital Course: Patient with PMHx of stage V renal failure, severe COPD, HTN presented to the ED the morning after falling. He is not exactly sure what happened, but was getting out of his car and fell, hitting his head. He declined head CT, and did not have neuro complaints during his stay. He has substantial left sided chest pain. In the ED, workup found a minimally displaced posterior left 7th rib fracture. While in the ED, his HR escalated to the 150's, sinus vs aflutter. He was given a dose of adenosine and rate decreased to the 70's. He is in renal failure, but this is longstanding, and he has declined renal replacement therapy. Baseline creatinine appears to be around 3.8, and was 4.13 with GFR of 15. COVID negative. He is anemic with Hgb of 9.9, baseline around 10.0. He lives alone. He is admitted for monitoring of his heart rate/rhythm and pain control. Several pain meds were tried, including tramadol, norco, lidocaine patch, oxycodone, tylenol, and dilaudid. He did not feel like they were helpful. Oxycodone made him somnolent. Dilaudid was started the day prior to DC, and he wasn't sure it if was helpful. He did not use it overnight. He has a productive cough at baseline, so with the rib fracture, the coughing was very painful. Will send him with a few dilaudid tablets to use while he is in the care center, since he did not have adverse effects, and may have been helpful for his pain. His hospitalization lasted four midnights. Pain was difficult to control, and he had persistent episodes of tachycardia. His heart rate would escalate to the 150's, sometimes spontaneously resolving, and sometimes requiring IV metoprolol. 25 mg metoprolol bid was started the evening of 09/04, and prevented recurrence. He has a murmur on physical exam, and does not remember being told this was present in the past. Offered echo, but he wanted to get his pain under control first. He has chronic anemia, likely due to his poor renal function. Hgb was in the 9 range during his stay. Reviewed his nephrology records, and his senior accounting analyst may start JEOVANY if his hemoglobin is consistently less than 10.0. The admission CXR showed "NONSPECIFIC LINEAR BANDLIKE OPACITY AND LINEAR SCARRING IN THE RIGHT LUNG BASE WHICH MAY OR MAY NOT BE OBSCURING A NODULAR OPACITY. RECOMMEND FURTHER EVALUATION WITH CHEST CT WITH CONTRAST GIVEN THE LACK OF ANY PRIOR EXAMS TO DOCUMENT STABILITY." Discussed this during his admission, and can obtain CT on an outpatient basis if he would like. Several discussions were held regarding code status and goals of care. With his stage V renal failure, COPD, new rib fracture increasing his pneumonia risk, cardiac murmur of unknown etiology, he has a poor overall prognosis. Should he require a ventilator, I do not believe he would be able to be extubated. To this he replied "If you feel like I would be on a ventilator for the rest of my life, I don't want it. I just don't know." He feels like he does want CPR, if needed. Discussed this with his daughter and grand daughter, and they will continue to have these discussions with him. On the day of DC, he felt comfortable going to [facility] for therapy, and hopes to return home eventually. 40 minutes spent on discharge with patient, placing orders, and note writing. Procedures Performed: none Results and Findings: Lab Pending Results 09/02/20 09:30: WBC 6.6, RBC 3.19 L, Hgb 9.9 L, Hct 30.9 L, MCV 96.9, MCH 31.0, MCHC 32.0, RDW 13.7, Plt Count 180, MPV 8.3, Immature Gran % (Auto) 0.80 H, Immature Gran # (Auto) 0.05 H, Neutrophils % 77.2 H, Lymphocytes % 8.9 L, Monocytes % 12.2 H, Eosinophils % 0.6, Basophils % 0.3, Nucleated RBC % 0.0, Neutrophils # 5.1, Lymphocytes # 0.59 L, Monocytes # 0.8, Eosinophils # 0.0, Absolute Basophils 0.0 09/02/20 09:30: Sodium 141, Plasma Sodium 141, Potassium 4.7 H, Chloride 107 H, Carbon Dioxide 22.2 L, Anion Gap 16.5 H, BUN 53 H, Creatinine 4.13 H, Est GFR (Non-Af Amer) 15 L, BUN/Creatinine Ratio 12.8, Random Glucose 123 H, Calcium 8.6, Calcium Adj for Albumin 8.3 L, Magnesium 1.8, Total Bilirubin 0.4, AST 19, ALT 15 L, Alkaline Phosphatase 75, Troponin I 0.047, B-Natriuretic Peptide 1741 H, Total Protein 7.5, Albumin 4.0, TSH 1.255 09/02/20 10:25: SARS-CoV-2 (PCR) Not detected 09/04/20 06:51: Phosphorus 4.5 H, Magnesium 1.8 09/04/20 06:55: WBC 7.8, RBC 2.93 L, Hgb 9.1 L, Hct 29.4 L, MCV 100.3 H, MCH 31.1 H, MCHC 31.0 L, RDW 13.8, Plt Count 157, MPV 8.6, Immature Gran % (Auto) 0.60 H, Immature Gran # (Auto) 0.05 H, Neutrophils % 75.8 H, Lymphocytes % 8.7 L, Monocytes % 14.5 H, Eosinophils % 0.3, Basophils % 0.1, Nucleated RBC % 0.0, Neutrophils # 5.9, Lymphocytes # 0.68 L, Monocytes # 1.1 H, Eosinophils # 0.0, Absolute Basophils 0.0 09/04/20 06:55: Sodium 138, Plasma Sodium 138, Potassium 5.3 H, Chloride 104, Carbon Dioxide 23.4 L, Anion Gap 15.9 H, BUN 55 H, Creatinine 4.17 H, Est GFR (Non-Af Amer) 14 L, BUN/Creatinine Ratio 13.2, Random Glucose 111 H, Calcium 8.7, Calcium Adj for Albumin 8.8, Total Bilirubin 0.4, AST 17, ALT 14 L, Alkaline Phosphatase 63, Total Protein 7.0, Albumin 3.5 09/05/20 10:26: WBC 8.3, RBC 2.98 L, Hgb 9.2 L, Hct 30.0 L, MCV 100.7 H, MCH 30.9, MCHC 30.7 L, RDW 13.7, Plt Count 158, MPV 8.4, Immature Gran % (Auto) 0.60 H, Immature Gran # (Auto) 0.05 H, Neutrophils % 72.5, Lymphocytes % 10.1 L, Monocytes % 15.6 H, Eosinophils % 1.1, Basophils % 0.1, Nucleated RBC % 0.0, Neutrophils # 6.1 H, Lymphocytes # 0.84 L, Monocytes # 1.3 H, Eosinophils # 0.1, Absolute Basophils 0.0 09/05/20 10:26: Sodium 138, Plasma Sodium 138, Potassium 5.0 H, Chloride 103, Carbon Dioxide 22.5 L, Anion Gap 17.5 H, BUN 68 H, Creatinine 4.57 H D, Est GFR (Non-Af Amer) 13 L, BUN/Creatinine Ratio 14.9, Random Glucose 107, Calcium 8.8, Calcium Adj for Albumin 8.9, Total Bilirubin 0.4, AST 17, ALT 18 L, Alkaline Phosphatase 60, Total Protein 7.1, Albumin 3.5 Discharge Location: [facility] Disposition: SNF Condition: Fair Discharge Activity: Activity as tolerated Discharge Diet: Renal Failure Fpc Therapy: Physical Therapy, Occupation Therapy Referrals: Noelle Moreno ARNP [Primary Care Provider] - Additional Patient Instructions (free text): SNF to [facility] for therapies, PT and OT to evaluate and treat. Please fax and call discharge information to [facility]. Please schedule with Tram Moreno one week after he leaves the [facility]. Prescriptions (Any new or edited meds): HYDROmorphone HCL [Dilaudid] 1 mg PO Q6H PRN #10 tab PRN Reason: Pain Transmission Status: Sent to [facility] Lidocaine [Lidoderm 5%] 1 patch TP DAILY #5 adh..patch Transmission Status: Pending to [facility] Metoprolol Tartrate [Lopressor] 25 mg PO Q12H #60 tab Transmission Status: Pending to [facility] Acetaminophen [Tylenol] 500 mg PO Q6H PRN #30 tab PRN Reason: Mild Pain (Pain Scale 1-3) Transmission Status: Pending to [facility] Complete Home Medications List: Complete Home Medication List: albuterol sulfate 90 mcg/actuation aerosol inhaler 1 puff IH Q6H 02/18/20 amlodipine 10 mg tablet 10 mg PO DAILY tab 02/18/20 cholecalciferol (vitamin D3) 10 mcg (400 unit) capsule 10 mcg PO DAILY 02/18/20 doxazosin 8 mg tablet 8 mg PO DAILY tab 02/18/20 magnesium chloride 64 mg PO DAILY 02/18/20 furosemide 20 mg tablet 40 mg PO DAILY tab 04/20/20 Albuterol Sulfate/Ipratropium [Duoneb 2.5-0.5MG/3ML Soln] 3 ml IH QID 09/02/20 Fluticasone Propion/Salmeterol [Advair 250-50 Diskus] 1 puff IH BID 09/02/20 Sodium Bicarbonate 650 mg PO TID 09/02/20 Symbicort 160-4.5 Mcg Inhaler 2 puff BID 09/02/20 Umeclidinium Brm/Vilanterol Tr [Anoro Ellipta 62.5-25 Mcg INH] 1 ea IH DAILY 09/02/20 Acetaminophen [Tylenol] 500 mg PO Q6H PRN #30 tab 09/06/20 HYDROmorphone HCL [Dilaudid] 1 mg PO Q6H PRN #10 tab 09/06/20 Lidocaine [Lidoderm 5%] 1 patch TP DAILY #5 adh..patch 09/06/20 Metoprolol Tartrate [Lopressor] 25 mg PO Q12H #60 tab 09/06/20 Forms: Patient Portal Registration
[2020-09-06] MEDS: METOPROLOL TARTRATE 25 MG TABLET PO SCH (10:02)
[2020-09-06 10:03] VITALS: BP 120/50
== END 2020-09-06 10:15 | DRG 309 ==
LOC: ER 08:11 → MS 08:11
PROVIDERS: ADMIT Family Medicine; ATTEND Family Medicine
DX: Z91.81 History of falling; J44.9 Chronic obstructive pulmonary disease, unspecified; S22.32XA Fracture of one rib, left side, initial encounter for closed fracture; I47.1 Supraventricular tachycardia; R01.1 Cardiac murmur, unspecified; I45.10 Unspecified right bundle-branch block; I12.9 Hypertensive chronic kidney disease with stage 1 through stage 4 chronic kidney disease, or unspecified chronic kidney disease; M25.511 Pain in right shoulder; G89.29 Other chronic pain; D63.1 Anemia in chronic kidney disease; N18.5 Chronic kidney disease, stage 5; E87.5 Hyperkalemia; V48.4XXA Person boarding or alighting a car injured in noncollision transport accident, initial encounter